=== PATIENT | female | born 1975 | race Caucasian/White ===

== ENCOUNTER 2022-06-01 14:03 | Emergency (ER) | payer MEDICAID, SELFPAY ==
[2022-06-01 14:38] VITALS: BP 111/69; PULSE 78; RESP 18; TEMP 36.9; O2SAT 100
--- NOTE | 2022-06-01 14:49 | ED.URI ---
HPI - URI/Sore Throat General Chief Complaint: Upper Respiratory Infection Stated Complaint: Sore Throat, Ears Irritation Time Seen by Provider: 06/01/22 14:50 Source: patient and RN notes reviewed Mode of arrival: ambulatory Limitations: no limitations History of Present Illness HPI Narrative: 46 y/o female presented for c/o sore throat, bilat ear pain, bodyaches and fatigue; onset yesterday. Endorses sick contacts positive for flu and attended a within the last week. Denies cough, sob, wheezing, n/v/d/f/c. Taking ibuprofen for symptoms. MD elicited complaint: sore throat Related Data Home Medications Medication Instructions Recorded Confirmed No Home Medications 06/01/22 06/01/22 Allergies Allergy/AdvReac Type Severity Reaction Status Date / Time seafood Allergy Mild Unknown Uncoded 06/01/22 14:49 Review of Systems Review of Systems: ROS per [facility] Social History Social History Smoking status: Current every day smoker Alcohol intake: current Exam Narrative: GENERAL: Ill-appearing, nontoxic EYES: conjunctivae clear ENT: Mucous membranes moist. TM pearly zuniga with dull light reflex bilaterally; no tragal tenderness. Oropharynx erythematous without lesions or exudate, no drooling, no hoarseness, no trismus, uvula midline. NECK: Supple. left anterior cervical lymphadenopathy CHEST: Clear to auscultation, breath sounds equal. No wheezing, rhonchi, rales, or stridor. HEART: Regular rate and rhythm. No murmur heard. SKIN: Warm, dry, no rash. NEURO: Alert and oriented x3. PSYCH: Normal mood and affect Course Course Emergency Course: Patient is aware of diagnosis, understands and agrees to treatment plan. Anticipatory guidance given. Patient agrees to follow-up as directed and is aware of reasons to seek care at the emergency department. Portions of this record may have been created with voice recognition software Level of Care: Express Care Visit Vital Signs Vital signs: Vital Signs Temperature 98.5 F 06/01/22 14:38 Pulse Rate 78 06/01/22 14:38 Respiratory Rate 18 06/01/22 14:38 Blood Pressure 111/69 06/01/22 14:38 Pulse Oximetry 100 06/01/22 14:38 Oxygen Delivery Room Air 06/01/22 14:38 Temperature 98.5 F 06/01/22 14:38 Pulse Rate 78 06/01/22 14:38 Respiratory Rate 18 06/01/22 14:38 Blood Pressure 111/69 06/01/22 14:38 Pulse Oximetry 100 06/01/22 14:38 Oxygen Delivery Room Air 06/01/22 14:38 reviewed MDM - URI/Sore Throat MDM Narrative Medical decision making narrative: flu and covid negative. Result reviewed with pt. patient states she was concerned about her symptoms being the flu. She declines strep test at this time. Advised supportive measures and signs/symptoms to go to the ER. Pt is appropriate for outpt treatment and f/u. Differential Diagnosis Differential diagnosis: Likely upper respiratory infection, sinusitis and viral infection Discharge Plan Discharge Clinical Impression: Viral infection Patient Disposition: Home, Self-Care Condition: Stable Instructions: Viral Syndrome (ED) Additional Instructions: Recommend Flonase spray and Zyrtec (or Claritin/Renu) for sinus congestion over the counter Cough syrup may cause drowsiness; avoid driving or take it at night time. Tylenol 1000mg every 8 hours as needed for pain Symptomatic treatment includes: rest, fluids, and increase humidity of the air at home. Follow up with your primary care provider in 1 week. Go to the ER for worsening symptoms or concerns. Prescriptions: No Action No Home Medications Follow-up/Referrals: PHYSICIAN,[employer] [Primary Care Provider] - Time of Disposition: 15:30
== END 2022-06-01 15:34 | disposition home or self-care (01) ==
PROVIDERS: Emergency Provider Nurse Practitioner Family
DX: B34.9 Viral infection, unspecified (principal); F17.200 Nicotine dependence, unspecified, uncomplicated; Z20.822 Contact with and (suspected) exposure to COVID-19
CPT/HCPCS: 87426; 87804; 99213; C9803; G0463

== ENCOUNTER 2022-10-02 16:40 | Emergency (ER) | payer OTHER, SELFPAY ==
[2022-10-02 16:52] VITALS: BP 113/77; PULSE 88; RESP 16; TEMP 37.1; O2SAT 99
--- NOTE | 2022-10-02 16:52 | ED.URI ---
HPI - URI/Sore Throat General Chief Complaint: Upper Respiratory Infection Stated Complaint: Sinus Time Seen by Provider: 10/02/22 16:52 Source: patient Mode of arrival: ambulatory Limitations: no limitations History of Present Illness HPI Narrative: 46-year-old female presents with complaint of sinus congestion, postnasal drainage, coughing for the past 12 days. Patient taking [id number] Mucinex DM, Claritin and Flonase also. Patient reports the past several days she has had pain in her ribs from coughing. Is waking up in the middle night choking and gagging due to cough. Afebrile. denies shortness of breath. All systems reviewed and negative except as noted above. Related Data Allergies Allergy/AdvReac Type Severity Reaction Status Date / Time No Known Allergies Allergy Verified 10/02/22 16:51 Review of Systems Review of Systems: CONSTITUTIONAL: Denies fever, chills, or sweats. reports fatigue. EYES: Denies visual changes, redness, or discharge. ENT: Reports rhinorrhea, congestion, sore throat. Denies otalgia. CARDIOVASCULAR: Denies chest pain, palpitations, or edema. RESPIRATORY: reports cough. Denies dyspnea. GASTROINTESTINAL: Denies abdominal pain, nausea, vomiting, or diarrhea. GENITOURINARY: Denies dysuria or hematuria. SKIN: Denies rash or itching. MUSCULOSKELETAL: Denies back pain, joint pain, or myalgia. NEUROLOGIC: Denies headache, numbness, or weakness. PSYCHIATRIC: Denies anxiety or depression. All other systems reviewed are negative, except as documented in HPI. PMFSH Social History Social History Smoking status: Current every day smoker Alcohol intake: current Comments At time of signature, agree with nursing past medical, surgical, social and family history. There is no relevant family history pertinent to the presenting complaint. Exam Narrative: GENERAL: This is a well-nourished, well-developed patient, in no apparent distress. HEAD: normocephalic, atraumatic. EYES: PERRL. Sclera clear/white. Vision is grossly intact. EARS: External ears normal, auditory canals clear and without drainage, TMs normal without perforation. Hearing grossly intact. NOSE: External nose normal with clear nasal drainage. mild congestion. THROAT: Mucous membranes moist, erythema and PND. NECK: Neck supple, non-tender without lymphadenopathy, masses or thyromegaly. CARDIOVASCULAR: Regular rate and rhythm without murmurs, gallops, or rubs. RESPIRATORY: Clear to auscultation. Breath sounds equal bilaterally. No wheezes, rales, or rhonchi. SKIN: warm, Dry, intact with no suspicious lesions or rash, good texture and turgor. NEURO: awake, alert, and oriented to person, place and time. There were no obvious focal neurologic abnormalities. EXTREMITIES: No joint tenderness, effusion, or edema noted. Course Course Level of Care: Express Care Visit Vital Signs Vital signs: Vital Signs Temperature 37.1 C 10/02/22 16:52 Pulse Rate 88 10/02/22 16:52 Respiratory Rate 16 10/02/22 16:52 Blood Pressure 113/77 10/02/22 16:52 Pulse Oximetry 99 10/02/22 16:52 Oxygen Delivery Room Air 10/02/22 16:52 Temperature 37.1 C 10/02/22 16:52 Pulse Rate 88 10/02/22 16:52 Respiratory Rate 16 10/02/22 16:52 Blood Pressure 113/77 10/02/22 16:52 Pulse Oximetry 99 10/02/22 16:52 Oxygen Delivery Room Air 10/02/22 16:52 reviewed MDM - URI/Sore Throat MDM Narrative Medical decision making narrative: Patient is aware of diagnosis, understands and agrees to treatment plan. Anticipatory guidance given. Patient agrees to follow-up as directed and is aware of reasons to seek care at the emergency department. Portions of this record may have been created with voice recognition software Differential Diagnosis Differential diagnosis: Likely upper respiratory infection, sinusitis and viral infection Discharge Plan Discharge Cli
== END 2022-10-02 17:19 | disposition home or self-care (01) ==
PROVIDERS: Emergency Provider Nurse Practitioner Family
DX: J01.90 Acute sinusitis, unspecified (principal); R05.9 Cough, unspecified; F17.200 Nicotine dependence, unspecified, uncomplicated
CPT/HCPCS: 99213; G0463

== ENCOUNTER 2023-06-01 10:21 | Emergency (ER) | payer OTHER, SELFPAY ==
[2023-06-01 10:51] VITALS: BP 122/69; PULSE 95; RESP 16; TEMP 37.3; O2SAT 97
--- NOTE | 2023-06-01 10:53 | ED.URI ---
HPI - URI/Sore Throat General Chief Complaint: Upper Respiratory Infection Stated Complaint: throat hurts,left ear hurts,fever Time Seen by Provider: 06/01/23 10:53 Source: patient Mode of arrival: ambulatory Limitations: no limitations History of Present Illness HPI Narrative: Sai is a 37-year-old female patient presenting to clinic today with complaints of sore throat, cough, nasal congestion, left ear pain, fever, body aches, chills x1 day. Highest fever was 103. No known exposure to anyone with COVID, flu, or strep. MD elicited complaint: fever, cough, sore throat, rhinorrhea and nasal congestion Related Data Home Medications Medication Instructions Recorded Confirmed No Home Medications 06/01/23 06/01/23 Allergies Allergy/AdvReac Type Severity Reaction Status Date / Time No Known Allergies Allergy Verified 06/01/23 10:38 Review of Systems Review of Systems: Pertinent positives per HPI. Patient denies any rash, headache, visual changes, dizziness, shortness of breath, chest pain, palpitations, nausea, vomiting, diarrhea, constipation, abdominal pain, or any urinary issues. PMFSH Social History Social History Smoking status: Current every day smoker Alcohol intake: current Comments At the time of my signature, I reviewed and agree with the nursing past medical, surgical, social, and family history. There is no relevant family history pertinent to the patient complaint. Exam Narrative: General: Well-developed, well nourished, in no apparent distress Head: Normocephalic, atraumatic Eyes: Pupils equally round and reactive to light bilaterally, EOM intact, sclera and conjunctive clear, no discharge, lids normal Ears: TMs intact and congested, left ear canal ceruminous, right ear canal clear, no drainage, grossly hearing normal. Nose: Nares patent, clear nasal discharge, no inflammation, no sinus tenderness. Mouth: Oral pharynx without lesions or masses, good dentition, MMM. Neck: Supple, trachea midline, no enlargement of anterior or posterior cervical nodes, no thyroid masses or goiter palpable. Cardio: Regular rate and rhythm, s1 and s2 normal, no murmur appreciated. Resp: Clear to auscultation bilaterally, no rhonchi, rales, wheezing or rubs Course Course Emergency Course: Portions of this record may have been created with voice recognition software. Level of Care: Express Care Visit Vital Signs Vital signs: Vital Signs Temperature 37.3 C 06/01/23 10:51 Pulse Rate 95 06/01/23 10:51 Respiratory Rate 16 06/01/23 10:51 Blood Pressure 122/69 06/01/23 10:51 Pulse Oximetry 97 06/01/23 10:51 Oxygen Delivery Room Air 06/01/23 10:51 Temperature 37.3 C 06/01/23 10:51 Pulse Rate 95 06/01/23 10:51 Respiratory Rate 16 06/01/23 10:51 Blood Pressure 122/69 06/01/23 10:51 Pulse Oximetry 97 06/01/23 10:51 Oxygen Delivery Room Air 06/01/23 10:51 Vital signs reviewed MDM - URI/Sore Throat MDM Narrative Medical decision making narrative: At the time of visit patient is resting comfortably on the exam table. Patient is nontoxic appearing. COVID, influenza, and strep test were completed. Influenza and strep test were negative. COVID test was positive. Patient has had COVID vaccination and no pertinent medical history. Supportive measures were discussed with the patient she voiced understanding discharge instructions agrees to treatment plan. Return precautions were reviewed Differential Diagnosis Differential diagnosis: Likely upper respiratory infection, otitis media, sinusitis, viral infection, bronchitis, influenza, pharyngitis and other (COVID) Discharge Plan Discharge Clinical Impression: COVID-19 Patient Disposition: Home, Self-Care Condition: Stable Instructions: Antibiotic Form, COVID-19 (Coronavirus Disease 2019) (ED), How to Recover from COVID-19 at Home (ED) Add
== END 2023-06-01 11:13 | disposition home or self-care (01) ==
PROVIDERS: Emergency Provider Nurse Practitioner Family
DX: U07.1 COVID-19 (principal); F17.200 Nicotine dependence, unspecified, uncomplicated
CPT/HCPCS: 87081; 87426; 87804; 87880; 99213; C9803; G0463